=== PATIENT | female | born 1970 | race Caucasian/White ===

== ENCOUNTER 2020-10-22 09:51 | Emergency (ER) | payer OTHER ==
[2020-10-22 10:29] LABS: BASOPHIL 0.8 % (0-2); EOSINOPHIL 0.8 % (0-5); HCT 42.1 % (37.0-47.0); HGB 13.5 g/dl (12.5-16.0); LYMPHOCYTE 21.6 % (15-48); MCH 28.5 pg (25.0-31.0); MCHC 32.1 g/dL (32.0-36.0); MCV 88.8 fL (78.0-100.0); MONOCYTE 7.4 % (0-12); MPV 11.3 fL (6.0-9.5); NEUTROPHIL 68.3 % (41-80); NRBC 0; PLT 272 K/uL (150-400); RBC 4.74 M/uL (4.20-5.40); RDW 14.7 % (11.5-14.0); WBC 7.5 K/uL (4.0-10.5)
[2020-10-22 10:48] LABS: BILIRUBIN NEGATIVE (NEGATIVE); BLOOD 1+ Ery/uL (NEGATIVE); CLARITY CLEAR (CLEAR); COLOR YELLOW (YELLOW); GLUCOSE (U) NORMAL (NORMAL); LEUKOCYTES NEGATIVE Leu/uL (NEGATIVE); NITRITE NEGATIVE (NEGATIVE); PROTEIN TRACE (LOW) mg/dL (NEGATIVE); SPECIFIC GRAVITY >=1.030 (1.001-1.030); UROBILINOGEN 0.2 mg/dL (0.2-1.0)
[2020-10-22 10:49] LABS: ALBUMIN 3.8 g/dL (3.4-5.0); BILIRUBIN - TOTAL 0.6 mg/dL (0.2-1.0); BUN/CREAT RATIO (CALC) 21.7 RATIO; CREATININE 0.83 mg/dL (0.51-0.95); GLOBULIN (CALCULATION) 3.4 g/dL; POTASSIUM 3.8 mmol/L (3.5-5.1); TOTAL PROTEIN 7.2 g/dL (6.4-8.2)
[2020-10-22 10:55] LABS: BACTERIA 2+; SQUAMOUS EPITHELIAL CELLS 20-50
[2020-10-22] MEDS ORDERED: ZOFRAN4 M1 PO (12:45)
[2020-10-22] MEDS ORDERED: HYDROCODON-ACE1 EAC2 PO (12:45)
== END 2020-10-22 12:46 | disposition home or self-care (01) ==
LOC: FER 09:51
PROVIDERS: Emergency Medicine
DX: N13.2 Hydronephrosis with renal and ureteral calculous obstruction (principal)
CPT/HCPCS: 36415; 80053; 81001; 85025; J1885